=== PATIENT | female | born 1965 | race Asian ===

== ENCOUNTER → 2016-12-27 | Day surgery (SDC) | payer OTHER ==
[~2016-12-27] MED LIST: BUPIVACAINE/EPINEPHRINE 0.25% 50 ML VIAL ONE; KETOROLAC TROMETHAMINE 30 MG/ML (IVP) VIAL IV PUSH ONE; LACTATED RINGER'S 1000 ML INJ 1,000 ML ONE; MIDAZOLAM HCL 2 MG/2 ML VIAL ONE; ONDANSETRON HCL 4 MG/2 ML VIAL IV PUSH ONE; PROPOFOL 200 MG/20 ML AMP IV ONE; SODIUM CHLOR 0.9% 250 ML BAG IV ONE; SYNT88TA PO; VANCOMYCIN HCL 1000 MG VIAL ONE; metroNIDAZOLE 500 MG INJ 100 ML IV ONE
--- NOTE | 2016-12-27 12:23 | TN ---
cc: SEUN GRISSOM M.D., ANTHONY A. MD DATE OF SURGERY 12/27/2016 PREOPERATIVE DIAGNOSIS Right upper quadrant pain and gallstones and biliary colic. POSTOPERATIVE DIAGNOSES Right upper quadrant pain and gallstones and biliary colic. PROCEDURE Laparoscopic cholecystectomy SURGEON Dr. Seun Grissom ANESTHESIA General INDICATIONS This a very pleasant 51-year-old woman who has a several year history of right upper back pain after eating greasy foods associated with nausea and bloating. She has had an ultrasound which demonstrates gallstones. She was desirous of undergoing laparoscopic cholecystectomy. INTRAOPERATIVE FINDINGS Gallbladder stones removed and sent to pathology. ESTIMATED BLOOD LOSS Minimal. DESCRIPTION OF PROCEDURE IN DETAIL The patient was identified as Navin Ramsay, taken to the operating room and placed in the supine position. Sequential compression devices were placed on bilateral lower extremities. Following induction of adequate general endotracheal anesthesia, the patient's abdomen was prepped and draped in usual sterile fashion with Betadine. A time-out procedure was performed. Following completion of time-out procedure to everyone's satisfaction within the room, 0.25% Marcaine with epinephrine was placed at each incision site. There was a small infraumbilical transverse scar which was opened and extended to about a 2 cm size. Dissection continued posteriorly to the level of the midline and fashion in the infraumbilical position. The base of the umbilicus was retracted anteriorly. The fascia was incised in a vertical fashion allowing for entry into the peritoneal cavity with a hemostat. The surgeon's finger confirmed intraperitoneal location and the applied medical balloon Maura trocar was placed in the peroneal cavity and its balloon inflated to two insufflations to a level of 15 mmHg ensued. The patient was placed in a reverse Trendelenburg position. Two upper abdominal 5 mm trocars placed in the peritoneal cavity under direct laparoscopic view after incision in the skin with a scalpel. The gallbladder was immediately identified and was retracted superiorly and anteriorly. There were no inflammatory adhesions to the gallbladder. There were a couple of adhesions to the adjacent liver. The gallbladder was removed from the gallbladder fossa in a dome down technique using the harmonic scalpel. The cystic arterial branch was divided with a harmonic scalpel. The cystic duct was isolated from surrounding tissues, ligated proximally and distally with 0-PDS Endoloops and divided between the Endoloops using the harmonic scalpel. The gallbladder was removed from the peritoneal cavity through the infraumbilical fascial port incision site, passed off field for pathologic evaluation. The right upper quadrant was examined. There was no bilious or bloody drainage. The cystic duct ligature remained intact. Remaining local anesthetic was placed in the right upper quadrant in the subhepatic and subdiaphragmatic positions. Trocars were removed under direct visualization. There was no evidence of bleeding from trocar sites. The abdomen was desufflated through the infraumbilical port which was then removed. The infraumbilical fascial incision was closed with interrupted 0 Vicryl sutures. Port sites were irrigated with saline. Skin incisions were approximated with 4-0 Monocryl subcuticular sutures. Dressings were applied with Mastisol and half inch brown Steri-Strips. The patient tolerated the procedure without apparent complication. Sponge, needle and instrument counts were correct at the end of the case. MD IGNACIO Almodovar/WILLIE /12:01 PM /12:10 PM
== END | disposition home or self-care (01) ==
LOC: ESDC 09:41
PROVIDERS: ATTEND Surgery Trauma Surgery
DX: K80.10 Calculus of gallbladder with chronic cholecystitis without obstruction (principal)
CPT/HCPCS: 00790; 47562; 88304; J1885; J2250; J2405; J3010; J3370; J7050; J7120